=== PATIENT | male | born 1955 | race Caucasian/White ===

== ENCOUNTER 2017-10-29 08:50 | Emergency (ER) | payer MEDICAID ==
[~2017-10-29] VITALS: Ht 190.5 cm; Wt 79.2 kg
[2017-10-29 08:52] VITALS: BP 140/83
[2017-10-29 10:01] LABS: RAPID INFLUENZA A Negative (Negative); RAPID INFLUENZA B Negative (Negative)
== END 2017-10-29 10:13 | disposition home or self-care (01) ==
LOC: ED 10:08
DX: J20.9 Acute bronchitis, unspecified (principal)
CPT/HCPCS: 71046; 87400; 99285

== ENCOUNTER 2017-11-18 08:47 | Emergency (ER) | payer MEDICAID ==
[~2017-11-18] VITALS: Ht 190.5 cm; Wt 77.2 kg
[2017-11-18] MEDS ORDERED: ONDANSETRON 2MG/ML, 2ML IVPush ONE (10:30)
[2017-11-18] MEDS ORDERED: SODIUM CHLORIDE 0.9% 1,000ML IVBOLUS ONE (10:30)
[2017-11-18 10:35] LABS: BASOPHILS # (AUTO) 0.05 x10^3/uL (0-0.1); BASOPHILS % (AUTO) 1 % (0-1); EOSINOPHILS # (AUTO) 0.06 x10^3/uL (0-0.4); EOSINOPHILS % (AUTO) 1 % (1-7); LYMPHOCYTES # (AUTO) 2.78 x10^3/uL (1-3.4); LYMPHOCYTES % (AUTO) 25 % (22-44); MD NO; MEAN CORPUSCULAR HEMOGLOBIN 28.8 pg (27.5-34.5); MEAN CORPUSCULAR HGB CONC 33.2 g/dL (33.2-36.2); MEAN CORPUSCULAR VOLUME 86.8 fL (81-97); MEAN PLATELET VOLUME 7.9 fL (7.4-10.4); MONOCYTES # (AUTO) 0.65 x10^3/uL (0.2-0.8); MONOCYTES % (AUTO) 6 % (2-9); NEUTROPHILS # (AUTO) 7.58 x10^3/uL (1.8-6.8); NEUTROPHILS % (AUTO) 68 % (42-75); PLATELET COUNT 299 x10^3/uL (130-400); RED BLOOD COUNT 5.32 x10^6/uL (4.38-5.82); RED CELL DISTRIBUTION WIDTH 15.5 % (9.4-14.8)
[2017-11-18 10:44] LABS: ALANINE AMINOTRANSFERASE 19 U/L (12-78); ALBUMIN 3.7 g/dL (3.4-5.0); ANION GAP 7 mmol/L (5-15); CALCIUM 8.8 mg/dL (8.5-10.1); CHLORIDE 107 mmol/L (98-107); CREATININE 0.89 mg/dL (0.7-1.3)
[2017-11-18 10:46] LABS: ALKALINE PHOSPHATASE 55 U/L (45-117); BILIRUBIN,TOTAL 0.4 mg/dL (0.2-1.0); TOTAL PROTEIN 7.3 g/dL (6.4-8.2)
[2017-11-18 10:48] VITALS: BP 158/95
[2017-11-18] MEDS ORDERED: SODIUM CHLORIDE FLUSH 10ML SYR IVF ONE (11:00)
[2017-11-18] MEDS ORDERED: SODIUM CHLORIDE 0.9% 1,000 ML IV ONE (11:00)
== END 2017-11-18 12:18 | disposition home or self-care (01) ==
LOC: ED 11:14
DX: K52.9 Noninfective gastroenteritis and colitis, unspecified (principal)
CPT/HCPCS: 36415; 80053; 85025; 99284

== ENCOUNTER 2019-01-16 06:14 | Emergency (ER) | payer MEDICAID ==
[~2019-01-16] VITALS: Ht 190.5 cm; Wt 72.8 kg
--- NOTE | 2019-01-16 06:29 | NUR ---
Pt c/o n/v/dx4 days w/ poor po intake. states able to tolerate water. denies blood in stool or emesis. denies recent hospitalizations/abx. C/o low grade fevers at home well controlled w/ motrin. States diffuse abd pain, no worse in any one spot. Monitoring applied. Call light within reach. Md at bedside for assessment.
[2019-01-16] MEDS ORDERED: LOPERAMIDE 2 MG CAPSULE ONE (06:36)
[2019-01-16] MEDS ORDERED: ONDANSETRON ODT 4 MG ONE (06:36)
--- NOTE | 2019-01-16 06:57 | NUR ---
Pt report to [facility].
[2019-01-16 06:58] LABS: BASOPHILS # (AUTO) 0.03 x10^3/uL (0-0.1); BASOPHILS % (AUTO) 0 % (0-1); EOSINOPHILS # (AUTO) 0.05 x10^3/uL (0-0.4); EOSINOPHILS % (AUTO) 1 % (1-7); LYMPHOCYTES # (AUTO) 1.95 x10^3/uL (1-3.4); LYMPHOCYTES % (AUTO) 30 % (22-44); MD NO; MEAN CORPUSCULAR HEMOGLOBIN 29.5 pg (27.5-34.5); MEAN CORPUSCULAR HGB CONC 33.9 g/dL (33.2-36.2); MEAN CORPUSCULAR VOLUME 86.9 fL (81-97); MEAN PLATELET VOLUME 7.8 fL (7.4-10.4); MONOCYTES # (AUTO) 0.48 x10^3/uL (0.2-0.8); MONOCYTES % (AUTO) 7 % (2-9); NEUTROPHILS # (AUTO) 4.05 x10^3/uL (1.8-6.8); NEUTROPHILS % (AUTO) 62 % (42-75); PLATELET COUNT 257 x10^3/uL (130-400); RED BLOOD COUNT 4.83 x10^6/uL (4.38-5.82); RED CELL DISTRIBUTION WIDTH 15.9 % (9.4-14.8)
[2019-01-16] MEDS ORDERED: LOPERAMIDE 2 MG CAPSULE PO ONE (07:00)
[2019-01-16] MEDS ORDERED: ONDANSETRON ODT 4 MG PO ONE (07:00)
[2019-01-16 07:09] LABS: ALANINE AMINOTRANSFERASE 19 U/L (12-78); ANION GAP 8 mmol/L (5-15); CALCIUM 9.1 mg/dL (8.5-10.1); CHLORIDE 108 mmol/L (98-107); CREATININE 0.96 mg/dL (0.7-1.3)
[2019-01-16 07:11] LABS: ALKALINE PHOSPHATASE 54 U/L (45-117); BILIRUBIN,TOTAL 0.2 mg/dL (0.2-1.0); TOTAL PROTEIN 7.1 g/dL (6.4-8.2)
--- NOTE | 2019-01-16 08:20 | NUR ---
Patient/Caregiver given discharge instructions and they have confirmed that they understand the instructions. Patient ambulatory with steady gait.
[2019-01-16 08:24] VITALS: BP 110/94
== END 2019-01-16 08:27 | disposition home or self-care (01) ==
LOC: ED 08:20
DX: K52.9 Noninfective gastroenteritis and colitis, unspecified (principal); K29.00 Acute gastritis without bleeding
CPT/HCPCS: 36415; 80053; 83690; 85025; 99283; Q0162

== ENCOUNTER 2019-01-24 06:41 | Emergency (ER) | payer MEDICAID ==
[~2019-01-24] VITALS: Ht 190.5 cm; Wt 72.4 kg
[2019-01-24] MEDS ORDERED: ONDANSETRON ODT 4 MG PO ONE (07:00)
[2019-01-24] MEDS ORDERED: CYCL5TAB PO (07:01)
[2019-01-24] MEDS ORDERED: HYDR-3237 PO (07:01)
[2019-01-24] MEDS ORDERED: IBUP-1623 PO (07:01)
[2019-01-24] MEDS ORDERED: ONDANSETRON ODT 4 MG ONE (07:04)
[2019-01-24 07:20] LABS: BASOPHILS # (AUTO) 0.06 x10^3/uL (0-0.1); BASOPHILS % (AUTO) 1 % (0-1); EOSINOPHILS # (AUTO) 0.15 x10^3/uL (0-0.4); EOSINOPHILS % (AUTO) 2 % (1-7); LYMPHOCYTES # (AUTO) 3.11 x10^3/uL (1-3.4); LYMPHOCYTES % (AUTO) 35 % (22-44); MD NO; MEAN CORPUSCULAR HEMOGLOBIN 28.2 pg (27.5-34.5); MEAN CORPUSCULAR HGB CONC 32.4 g/dL (33.2-36.2); MEAN CORPUSCULAR VOLUME 87.2 fL (81-97); MEAN PLATELET VOLUME 8.4 fL (7.4-10.4); MONOCYTES # (AUTO) 0.65 x10^3/uL (0.2-0.8); MONOCYTES % (AUTO) 7 % (2-9); NEUTROPHILS # (AUTO) 4.93 x10^3/uL (1.8-6.8); NEUTROPHILS % (AUTO) 55 % (42-75); PLATELET COUNT 277 x10^3/uL (130-400); RED BLOOD COUNT 5.35 x10^6/uL (4.38-5.82); RED CELL DISTRIBUTION WIDTH 16.3 % (9.4-14.8)
[2019-01-24 07:29] LABS: ALANINE AMINOTRANSFERASE 20 U/L (12-78); ALBUMIN 4.1 g/dL (3.4-5.0); ANION GAP 6 mmol/L (5-15); CALCIUM 9.4 mg/dL (8.5-10.1); CHLORIDE 111 mmol/L (98-107); CREATININE 0.92 mg/dL (0.7-1.3)
[2019-01-24 07:31] LABS: ALKALINE PHOSPHATASE 61 U/L (45-117); BILIRUBIN,TOTAL 0.4 mg/dL (0.2-1.0); TOTAL PROTEIN 7.5 g/dL (6.4-8.2)
[2019-01-24 08:00] VITALS: BP 149/97
--- NOTE | 2019-01-24 08:01 | NUR ---
pt upright on gurney awake & calm, texting on phone, responds approp to staff, NAD, comfort measures provided, call light within reach.
--- NOTE | 2019-01-24 08:26 | NUR ---
Rod gonzalez in ED - 01/24/19 at 0826 by STEPHANY pt reports pain has worsened to 06/29.
--- NOTE | 2019-01-24 08:55 | NUR ---
Patient given discharge instructions and rX, signed AMA form, they have confirmed that they understand the instructions. Patient ambulatory with steady gait.
== END 2019-01-24 08:55 | disposition left against medical advice (07) ==
LOC: ED 07:15
DX: R11.2 Nausea with vomiting, unspecified (principal); R19.7 Diarrhea, unspecified; E27.49 Other adrenocortical insufficiency; F17.200 Nicotine dependence, unspecified, uncomplicated
CPT/HCPCS: 36415; 74021; 80053; 83690; 85025; 99284; Q0162